=== PATIENT | male | born 1960 | race Caucasian/White ===

== ENCOUNTER 2023-10-01 11:46 | Emergency (ER) | payer OTHER ==
[~2023-10-01] VITALS: Ht 193 cm; Wt 138.6 kg
[2023-10-01 12:18] VITALS: TEMP 97.9
[2023-10-01] MEDS: ACETAMINOPHEN 500 MG TABLET PO ONE (13:11)
[2023-10-01] MEDS ORDERED: ACET-3385 PO (13:20)
[2023-10-01 13:38] VITALS: BP 133/85; PULSE 81; RESP 18
== END 2023-10-01 13:40 | disposition home or self-care (01) ==
LOC: EMS 11:46
DX: S06.0X0A Concussion without loss of consciousness, initial encounter (principal); F41.9 Anxiety disorder, unspecified; F32.A Depression, unspecified; Z98.890 Other specified postprocedural states; W18.09XA Striking against other object with subsequent fall, initial encounter; Y93.89 Activity, other specified; Y92.89 Other specified places as the place of occurrence of the external cause; Y99.8 Other external cause status
CPT/HCPCS: 70450; 70486; 72125; 99284